=== PATIENT | female | born 1970 | race Caucasian/White ===

== ENCOUNTER → 2017-11-09 | Outpatient (CLI) | payer BC ==
[~2017-11-09] MED LIST: AMOXICILLIN500 M1 PO; CALCIUM 500 +1 EACH PO; CARAFATE100 MG/ML PO; CIPROFLOXACIN500 M1 PO; FLAGYL500 MG PO; GAVISCON EXTRA355 ML PO; HYDROCODON-ACE1 EAC7 PO; IBUPROFEN800 MG PO; LO-DOSE ASPIRIN81 M1 PO; MOTRIN IB200 MG PO; MOTRIN800 MG PO; MULTIPLE VITAM1 EAC1 PO; NAPROSYN500 MG PO; NEOSPORIN ANT70.8 GM TP; PEPTO BISMOL240 ML PO; RANITIDINE HCL300 MG PO; URIBEL CAPSULE1 EACH PO; UROCIT-K15 MEQ PO; ZANTAC300 MG PO; ZOFRAN4 MG PO
== END | disposition home or self-care (01) ==
LOC: NUC 06:52
DX: K31.84 Gastroparesis (principal)
CPT/HCPCS: 78264; A9541